=== PATIENT | male | born 1950 | race Caucasian/White ===

== ENCOUNTER 2019-04-26 07:05 | Emergency (ER) | payer MEDICARE, OTHER ==
[2019-04-26] MEDS ORDERED: Lidocaine 2% Jelly 30 ML Tube MUCMEM ONE (07:23)
[2019-04-26] MEDS ORDERED: Lidocaine 2% HCl 6 ML JEL.PF.APP ONE (07:26)
--- NOTE | 2019-04-26 07:51 | EDM.PDOC ---
ED HPI GENERAL MEDICAL PROBLEM - General Chief Complaint: Genitourinary Problem Stated Complaint: NOT ABLE TO USE BATHROOM Time Seen by Provider: 04/26/19 07:30 Source of Information: Reports: Patient History Limitations: Reports: No Limitations - History of Present Illness INITIAL COMMENTS - FREE TEXT/NARRATIVE: had prostate surgery on thursday , had fuller in place till yesterday am . Came in this am unable to void, lots of pressure and discomfort in the suprapubic region . no back pain , no fever or chills , pt is on bactrim Onset: Gradual Duration: Day(s): (1), Getting Worse Location: Reports: Abdomen Quality: Reports: Ache, Dull, Pressure Severity: Moderate Improves with: Reports: None Worsens with: Reports: None Context: Reports: Other (post op) Associated Symptoms: Reports: No Other Symptoms Lower abdomen Pain Score (Numeric/FACES): 7 - Related Data Allergies Allergy/AdvReac Type Severity Reaction Status Date / Time codeine Allergy Nausea Verified 04/26/19 07:17 Home Meds: Home Meds Lutein [Natural Lutein] 20 mg PO DAILY 04/26/19 [History] Multivitamin [Multivitamins] 1 each PO DAILY 04/26/19 [History] Oxybutynin [Oxybutynin ER] 10 mg PO DAILY 04/26/19 [History] Sulfamethoxazole/Trimethoprim [Sulfamethoxazole-Tmp Ds Tablet] 1 tab BID [History] Past Medical History Genitourinary History: Reports: BPH, Prostate Disorder ED ROS GENERAL - Review of Systems Review Of Systems: Comprehensive ROS is negative, except as noted in HPI. Constitutional: Denies: Fever, Malaise GI/Abdominal: Denies: Distension, Flatus, Stool Incontinence : Reports: Urinary Retention. Denies: Discharge, Dysuria, Flank Pain, Frequency, Incontinence ED EXAM, RENAL/ - Physical Exam Exam: See Below Exam Limited By: No Limitations General Appearance: Alert, WD/WN, No Apparent Distress Eye Exam: Bilateral Eye: Normal Inspection Ears: Normal External Exam Head: Atraumatic, Normocephalic Neck: Supple, Non-Tender, Full Range of Motion Respiratory/Chest: No Respiratory Distress Cardiovascular: Normal Peripheral Pulses GI/Abdominal: Normal Bowel Sounds, Soft, Tender (suprapubic) (Male) Exam: Deferred Back Exam: Normal Inspection, Full Range of Motion Neurological: Alert, Oriented, CN II-XII Intact, Normal Cognition Psychiatric: Normal Affect, Normal Mood Skin Exam: Warm, Dry, Intact, Normal Color Course - Vital Signs Last Recorded V/S: Last Vital Signs Temp 36.4 C 04/26/19 07:11 Pulse 84 04/26/19 07:11 Resp 20 04/26/19 07:11 BP 150/80 H 04/26/19 07:11 Pulse Ox 100 04/26/19 07:11 - Orders/Labs/Meds Orders: Active Orders 24 hr Category Date Time Status Insert Fuller Catheter [Insert Urinary Catheter] [OM.PC] Care 04/26/19 07:30 Ordered Q24H Urinary Catheter Assessment [RC] QSHIFT Care 04/26/19 07:23 Active Labs: Laboratory Tests 04/26/19 Range/Units 07:35 Urine Color Yellow (YELLOW) Urine Appearance Slightly cloudy (CLEAR) Urine pH 6.0 (5.0-6.5) Ur Specific [place] 1.015 (1.010-1.025) Urine Protein Trace (NEGATIVE) mg/dL Urine Glucose (UA) Normal (NORMAL) mg/dL Urine Ketones Negative (NEGATIVE) mg/dL Urine Occult Blood Large H (NEGATIVE) Urine Nitrite Negative (NEGATIVE) Urine Bilirubin Negative (NEGATIVE) Urine Urobilinogen Normal (NEGATIVE) mg/dL Ur Leukocyte Esterase Negative (NEGATIVE) Urine RBC >100 H (0-5) Urine WBC 0-5 (0-5) Ur Squamous Epith Cells Few H (NS,R,O) Urine Bacteria Few H (NS) Meds: Medications Discontinued Medications Generic Name Dose Route Start Last Admin Trade Name Mauriq PRN Reason Stop Dose Admin Lidocaine HCl 6 ml 04/26/19 07:26 04/26/19 07:34 Glydo .XX 04/26/19 07:27 6 ml ONETIME ONE Administration Departure - Departure Time of Disposition: 08:55 Disposition: Home, Self-Care 01 Condition: Good Clinical Impression: Acute urinary retention, Postoperative urinary retention - Discharge Information *PRESCRIPTION DRUG MONITORING PROGRAM REVIEWED*: Not Applicable *COPY OF PRESCRIPTION DRUG MONITORING REPORT IN PATIENT ANJU: Not Applicable Instructions: Indwelling Urinary Catheter Care, Adult, [id number], Acute Urinary Retention, Male, [id number] Referrals: Chele Saunders MD [Primary Care Provider] - Forms: ED Department Discharge Care Plan Goals: Follow up with Urologist in am for further management - My Orders Last 24 Hours: My Active Orders 04/26/19 07:23 Urinary Catheter Assessment [RC] QSHIFT 04/26/19 07:30 Insert Fuller Catheter [Insert Urinary Catheter] [OM.PC] Q24H - Assessment/Plan Last 24 Hours: My Active Orders 04/26/19 07:23 Urinary Catheter Assessment [RC] QSHIFT 04/26/19 07:30 Insert Fuller Catheter [Insert Urinary Catheter] [OM.PC] Q24H
== END 2019-04-26 09:06 | disposition home or self-care (01) ==
LOC: FB.ED 07:05
DX: N99.89 Other postprocedural complications and disorders of genitourinary system (principal); R33.8 Other retention of urine; Z88.5 Allergy status to narcotic agent; Z79.899 Other long term (current) drug therapy
CPT/HCPCS: 51702; 81001; 99284-25; A9270-GY

== ENCOUNTER 2024-07-21 15:28 | Emergency (ER) | payer MEDICARE ==
[2024-07-21 16:00] VITALS: BP 143/85; PULSE 96
[2024-07-21 16:30] LABS: MAGNESIUM 1.8 mg/dL (1.8-2.5)
[2024-07-21 16:45] LABS: TSH ULTRASENSITIVE 1.35 IU/mL (0.36-3.74)
[2024-07-21] MEDS: Sodium Chloride 0.9% 1,000 ML IV SCH (16:58)
== END 2024-07-21 18:56 | disposition home or self-care (01) ==
LOC: FB.ED 15:28
DX: K59.00 Constipation, unspecified (principal); R53.1 Weakness; E66.9 Obesity, unspecified; Z90.49 Acquired absence of other specified parts of digestive tract; Z88.5 Allergy status to narcotic agent; Z79.899 Other long term (current) drug therapy; W19.XXXA Unspecified fall, initial encounter; Y92.019 Unspecified place in single-family (private) house as the place of occurrence of the external cause
CPT/HCPCS: 70450; 74176; 83735; 84443; 96360; 99285-25; J7030